=== PATIENT | male | born 1985 | race Caucasian/White ===

== ENCOUNTER 2021-02-03 12:32 | Emergency (ER) | payer OTHER ==
[~2021-02-03] VITALS: Ht 182.9 cm; Wt 133.8 kg
[~2021-02-03 12:32] MED LIST: LEVSOD150 PO; OMEPRAZOLE20 MG PO
== END 2021-02-03 14:11 | disposition home or self-care (01) ==
LOC: ER 12:32
DX: R07.89 Other chest pain (principal); E03.9 Hypothyroidism, unspecified; K21.9 Gastro-esophageal reflux disease without esophagitis
CPT/HCPCS: 71046; 93005; 93010; 99283-25; A9270; J1100

== ENCOUNTER 2024-03-05 13:48 | Emergency (ER) | payer OTHER ==
[~2024-03-05] VITALS: Ht 182.9 cm; Wt 95.2 kg
[~2024-03-05 13:48] MED LIST changes: +LOSA25 PO
[2024-03-05] MEDS ORDERED: OZEMPIC2 MG/0.75 SC (14:28)
[2024-03-05] MEDS ORDERED: LOSARTAN POTAS100 M1 PO (14:28)
[2024-03-05] MEDS ORDERED: Metoclopramide HCl 5MG / ML 2ML Vial IM ONE ×2 (14:35→16:40)
[2024-03-05] MEDS ORDERED: Acetaminophen 500 MG Tab PO ONE (14:35)
[2024-03-05] MEDS ORDERED: ONDA4ODT MM (16:15)
[2024-03-05 16:30] VITALS: BP 147/68
[2024-03-05] MEDS ORDERED: CYCL10 PO (16:31)
[2024-03-06] MEDS ORDERED: CYCL10 PO (12:44)
[2024-03-06] MEDS ORDERED: ONDA4ODT MM (12:44)
== END 2024-03-05 16:45 | disposition home or self-care (01) ==
LOC: ER 13:48
DX: S06.0X1A Concussion with loss of consciousness of 30 minutes or less, initial encounter (principal); E03.9 Hypothyroidism, unspecified; G47.30 Sleep apnea, unspecified; W22.8XXA Striking against or struck by other objects, initial encounter; Z79.899 Other long term (current) drug therapy; Z91.018 Allergy to other foods
CPT/HCPCS: 70450; 72125; 96372; 99284-25; A9270; J2765

== ENCOUNTER 2025-01-01 12:21 | Emergency (ER) | payer OTHER ==
[~2025-01-01] VITALS: Ht 182.9 cm; Wt 117.9 kg
[~2025-01-01 12:21] MED LIST changes: +CYCL10 PO; +LOSARTAN POTAS100 M1 PO; +ONDA4ODT MM; +OZEMPIC2 MG/0.75 SC
[2025-01-01] MEDS ORDERED: DiphenhydrAMINE HCl 50 MG/ML 1ML Vial IV ONE (12:55)
[2025-01-01] MEDS ORDERED: Prochlorperazine Edisylate 10 mg Vial IV ONE (12:55)
[2025-01-01] MEDS ORDERED: Ketorolac Tromethamine 15mg Vial IV ONE (12:55)
[2025-01-01 14:33] VITALS: BP 135/78
[2025-01-01] MEDS ORDERED: PROM25 PO ×2 (14:35→14:41)
[2025-01-01] MEDS ORDERED: ONDA4ODT MM ×2 (14:35→14:41)
== END 2025-01-01 14:50 | disposition home or self-care (01) ==
LOC: ER 12:21
DX: R11.2 Nausea with vomiting, unspecified (principal); R51.9 Headache, unspecified; T50.A95A Adverse effect of other bacterial vaccines, initial encounter; E03.9 Hypothyroidism, unspecified; K21.9 Gastro-esophageal reflux disease without esophagitis; G47.30 Sleep apnea, unspecified; Z91.018 Allergy to other foods; Z79.85 Long-term (current) use of injectable non-insulin antidiabetic drugs; Z79.890 Hormone replacement therapy; Z79.899 Other long term (current) drug therapy; Z59.89 Other problems related to housing and economic circumstances
CPT/HCPCS: 96374; 96375; 99283-25; J0780; J1200; J1885